=== PATIENT | male | born 1935 | race Caucasian/White ===

== ENCOUNTER 2017-01-30 10:56 | Outpatient (CLI) | payer MEDICARE, BC ==
--- NOTE | ~2017-01-30 | HEMODYNAMI ---
PATIENT:GIULIANA CHARLES MEDICAL RECORD: [id number] : 37 LOCATION:D.CAT ADMISSION DATE: 01/30/17 Generatedon:01/30/201714:08 Patient name: GIULIANA CHARLES Patient #: [id number] SSN: : 1935 Date of study: 01/30/2017 Page: Of Hemodynamic Procedure Report Patient Data Patient Demographics Procedure consent was obtained First Name: GIULIANA Gender: Male Last Name: MELVIN : 1935 Patient #: [id number] Age: 82 year(s) Race: Unknown Additional ID: [id number] Contact details [address]: [address] [place] [address] State: [place] City: [facility] Zip code: [address] Admission Admission Data Admission Date: 01/30/2017 Admission Time: 10:56 Procedure Procedure Types Cath Procedure Diagnostic Procedure Cardioversion Procedure Description Procedure Date Procedure Date: 01/30/2017 Procedure Start Time: 13:48 Procedure End Time: 14:07 Procedure Staff Name Function Say Cheng MD Performing Physician Elio Andujar RT Monitor Jose J Block RT [employer] Bus Driver Madyson Jacobs RN Nurse Procedure Data Cath Procedure Fluoroscopy Diagnostic fluoroscopy Total fluoroscopy Time: 0 time: 0 min min Diagnostic fluoroscopy Total fluoroscopy dose: 0 dose: 0 mGy mGy Contrast Material Contrast Material Type Amount (ml) Isovue 300 0 Estimated blood loss: 0 ml Procedure Complications No complications Procedure Medications Medication Administration Route Dosage Oxygen NC 6 l/min Hemodynamics Rest Heart Rate: 69 (bpm) Snapshots Pre Cath Intra NCS Post Cath Vital Signs Time Heart Resp SPO2 NIBP (mmHg) Rhythm Pain Sedation Rate (ipm) (%) Status Level (bpm) 13:45:42 67 22 18 146/90(119) NSR 0 (11) 10(A) , No pain 13:50:13 54 16 95 107/65(84) NSR 0 (11) 10(A) , No pain 13:54:19 54 23 97 107/58(82) NSR 0 (11) 10(A) , No pain 13:58:33 54 19 100 102/49(85) NSR 0 (11) 10(A) , No pain 14:02:44 48 14 100 102/53(73) NSR 0 (11) 10(A) , No pain 14:06:56 49 20 100 111/54(73) NSR 0 (11) 10(A) , No pain Medications Time Medication Route Dose Verified Delivered Reason Notes Effectiven ess by by 13:47:27 Oxygen NC 6 Buffie Buffie used for l/min Josephine RN Josephine uppers edge burnisher Procedure Log Time Note 13:28:32 Elio Andujar RT(R) sent for patient. Start room use. 13:28:33 Time tracking: Regular hours 13:28:36 Plan of Care:Hemodynamics will remain stable., Cardiac rhythm will remain stable., Comfort level will be maintained., Respiratory function will remain adequate., Patient/ family verbilizes understanding of procedure., Procedure tolerated without complication., Recovers from procedure without complications.. 13:37:42 Patient arrived from Pre/Post Procedure Room to [facility]. Patient remains on bed/stretcher for procedure. 13:37:51 Warm blankets applied, and aneta hugger turned on for patient comfort. 13:37:52 Correct patient and procedure confirmed by team. 13:37:53 Signed procedure consent form obtained from patient. 13:37:53 ECG and BP/O2 sat monitors applied to patient. 13:40:02 Dr Celestin present and monitoring patient for TIVA. 13:44:44 Vital chart was started 13:44:45 Baseline sample Acquired. 13:44:51 Rhythm: atrial fibrillation 13:44:52 Full Disclosure recording started 13:44:55 H&P Date Dictated: 01/30/2017 Within 30 days and on chart., H&P Addendum completed by physician on day of procedure. (MUST COMPLETE FOR ALL OUTPATIENTS). 13:44:57 Pre-procedure instructions explained to patient. 13:44:57 Pre-op teaching completed and patient verbalized understanding. 13:44:58 Family in waiting room. 13:44:59 Patient NPO since Midnight. 13:45:01 Is the patient allergic to Iodine/contrast media? No. 13:45:02 Is patient on blood thinner?Yes 13:45:07 ACC The patient was administered the following blood thiners within the last 24 hours: Eliquis 13:45:09 Patient diabetic? No. 13:45:21 Previous problem with sedation/anesthesia? No ? 13:45:22 Snore? Yes 13:45:23 Sleep apnea? No 13:45:26 Deviated septum? No 13:45:26 Opens mouth fully? Yes 13:45:27 Sticks out tongue? Yes 13:45:28 Airway obstruction? No ? 13:45:30 Dentures? No ? 13:45:34 Patient pain scale 0/10 ?. 13:45:39 IV patent on arrival in left forearm with 0.9% NaCl at [facility]. 13:45:41 Lab results completed and on chart. 13:45:43 Alarms reviewed by R. N. 13:45:44 Sharps counted by scrub and verified by R.N. 13:45:46 --------ALL STOP TIME OUT------ 13:45:47 Final Timeout: patient, procedure, and site verified with staff and physician. All members of the team are in agreement. 13:45:52 Physical assessment completed. ASA score P 2 - A patient with mild systemic disease as per Say Cheng MD. 13:45:55 Sedation plan: TIVA Propofol 13:46:18 Quick Combo opened to sterile field. 13:46:22 Quick combo pads placed on patients chest and back. 13:47:27 Oxygen 6 l/min NC was administered by Yohana Burton RN; used for procedure; 13:48:10 Baseline sample Acquired. 13:48:19 Procedure started. 13:48:24 Defibrillator synced and charged to 200 Joules. 13:48:26 Shock delivered. 13:49:59 Patient cardioverted to sinus bradycardia. 13:50:04 Procedure ended.(Physican Out) 13:51:39 Fluoroscopy time 00.00 minutes. 13:51:40 Fluoroscopy dose: 0 mGy 13:51:40 Flurop Dose total: 0 13:51:42 Contrast amount:Isovue 300 0ml. 13:51:49 Post-procedure physical assessment completed. ASA score P 2 - A patient with mild systemic disease as per Say Cheng MD. 13:51:54 Post procedure rhythm: sinus bradycardia 13:52:06 Estimated blood loss: 0 ml 13:52:07 Post procedure instruction explained to patient.Patient verbalizes understanding. 13:52:08 Patient needs reinforcement of post procedure teaching. 13:52:09 Procedure and supply charges have been captured, reviewed, submitted and are correct. 13:52:22 Procedure Complication : No complications 14:07:45 Vital chart was stopped 14:07:45 See physician's report for complete and final results. 14:07:48 Report given to Pre/Post Procedure Room. 14:07:52 Patient transfered to Pre/Post Procedure Room with Stretcher. 14:07:58 Procedure ended. 14:07:58 Full Disclosure recording stopped 14:08:05 End room use (Document Last) Device Usage Item Manufacture Quantity Catalog Hospital Part Current Minimal Lot# / Name Number Charge Number Stock [facility] Kervin ak# Code [facility] Gnammo 1 [id number] Combo Signature Audit [place] Stage Time Signature Unsigned Intra-Procedure 01/30/2017 Elio Andujar 2:08:21 PM RT(R) Signatures Monitor : Elio Andujar RT Signature : Date : Time : [address] [address]
[2017-01-30] MEDS ORDERED: CRESTOR10 MG PO (12:12)
[2017-01-30] MEDS ORDERED: BAYER CHEWABLE81 MG PO (12:13)
[2017-01-30] MEDS ORDERED: LISINOPRIL5 MG PO (12:13)
[2017-01-30] MEDS ORDERED: PREVACID15 MG PO (12:14)
[2017-01-30] MEDS ORDERED: BETAPACE 80 MG80 MG PO (12:14)
[2017-01-30] MEDS ORDERED: CO Q-10100 MG PO (12:15)
[2017-01-30] MEDS ORDERED: KRILL OIL 1,001 EAC1 PO (12:15)
[2017-01-30] MEDS ORDERED: ELIQUIS5 MG PO (12:15)
[2017-01-30 12:51] LABS: CALC OSMOLALITY 289 mosm/kg (275-300); CALCIUM 8.8 mg/dL (8.5-10.1); CARBON DIOXIDE 28.6 mmol/L (21.0-32.0); CHLORIDE - SERUM 107 mmol/L (98-107); GLUCOSE 112 mg/dL (74-106); POTASSIUM - SERUM 4.8 mmol/L (3.5-5.1); SODIUM 144 mmol/L (136-145); UREA NITROGEN 18 mg/dL (7-18); eGFR NON AFRICAN AMERICAN 76 mL/min (90-120)
[2017-01-30 12:52] LABS: INR 1.26 (0.85-1.17); PROTIME 15.7 SECONDS (11.6-15.0)
[2017-01-30 13:55] LABS: BASOPHILS 0.2 % (0.0-2.0); EOSINOPHILS 1.4 % (0-7); HEMATOCRIT 46.1 % (42.0-54.0); IMMATURE GRANULOCYTES 0.2 % (0-5); MCH 29.8 pg (26.0-34.0); MCHC 32.5 g/dL (31.0-37.0); MCV 91.5 fL (80.0-100.0); MEAN PLATELET VOLUME 11.7 fL (7.4-10.4); MONOCYTES 11.3 % (2-11); NEUTROPHILS 66.9 % (40-80); PLATELET COUNT 170 10x3/uL (130-400); RBC 5.04 10x6/uL (4.20-6.10); WBC 8.8 10x3/uL (4.8-10.8)
--- NOTE | 2017-01-30 14:30 | NUR ---
RESTING IN BED, FAMILY AT BEDSIDE. VITAL SIGNS STABLE. NO C/O NAUSEA OR CHEST PAIN. P 3 ARMAMENT/ORDNANCE IMA TECHNICIAN SHOWS SINUS BETHANY IN THE 40s. WILL CONTINUE TO MONITOR.
--- NOTE | 2017-01-30 14:45 | NUR ---
DRINK AND SNACK GIVEN. NO C/O AT THIS TIME. VITAL SIGNS STABLE. WILL CONTINUE TO MONITOR.
--- NOTE | 2017-01-30 15:00 | NUR ---
RESTING IN BED. VITAL SIGNS STABLE. NO C/O AT THIS TIME. WILL CONTINUE TO MONITOR.
--- NOTE | 2017-01-30 15:45 | NUR ---
LEFT HAND PIV D/C'D WITH CATHETER INTACT, BAND AID TO SITE. UP TO GET DRESSED.
--- NOTE | 2017-01-30 16:00 | NUR ---
TO RESTROOM TO VOID.
--- NOTE | 2017-01-30 16:15 | NUR ---
DISCHARGE INSTRUCTIONS GIVEN, VERBALIZED UNDERSTANDING.
--- NOTE | 2017-01-30 16:22 | NUR ---
TAKEN OUT VIA WHEELCHAIR BY CATH ROLL SLICING MACHINE TENDER. LEFT FACILITY WITH FAMILY MEMBER AND ALL PERSONAL BELONGINGS.
--- NOTE | 2017-02-08 14:54 | OP ---
PATIENT NAME: GIULIANA CHARLES MEDICAL RECORD: [id number] :37 LOCATION:D.CAT ADMISSION DATE: SURGEON: CHRISTINE CASTELLANOS M.D. DATE OF OPERATION: 01/30/2017 REFERRING PHYSICIAN: Dr. Antonio Preciado of [place], [place]. PROCEDURE PERFORMED: Cardioversion. INDICATION: An 82-year-old gentleman presents for persistent atrial fibrillation. DESCRIPTION OF THE PROCEDURE: The patient was brought to the cardiac catheterization technician. It was confirmed he is on atrial fibrillation. He has been anticoagulated and been on sotalol as well. EKG confirmed he is on atrial fibrillation. He received conscious sedation in the form of propofol. Once the patient was adequately sedated, he received 1 discharge of 200 joules. This resulted in adventist of sinus rhythm. He tolerated procedure well without any complication. IMPRESSION: Successful cardioversion with adventist of sinus rhythm. TRANSINT:[id number] Voice Confirmation ID: [id number] DOCUMENT ID: [id number] CHRISTINE CASTELLANOS M.D. at 1454 CC: [id number] DICTATION DATE: 01/30/17 1352 LVN LPN: 01/30/17 2343 DEP CLI 01/30/17 [id number] [place] [address]
== END 2017-01-30 16:22 | disposition home or self-care (01) ==
LOC: D.CATH 10:56
PROVIDERS: Internal Medicine Cardiovascular Disease
DX: I48.91 Unspecified atrial fibrillation (principal)

== ENCOUNTER → 2018-12-25 09:56 | Outpatient (CLI) | payer MEDICARE, BC ==
[~2018-12-25 09:56] MED LIST: BAYER CHEWABLE81 MG PO; BETAPACE 80 MG80 MG PO; CO Q-10100 MG PO; CRESTOR10 MG PO; ELIQUIS5 MG PO; KRILL OIL 1,001 EAC1 PO; LISINOPRIL5 MG PO; NEXIUM20 MG PO; PLAVIX75 MG PO; PREVACID15 MG PO; TOPROL XL25 MG PO
== END | disposition home or self-care (01) ==
LOC: D.HCCARDIO 09:56
DX: I48.91 Unspecified atrial fibrillation (principal)

== ENCOUNTER 2019-01-08 06:59 | Outpatient (CLI) | payer MEDICARE, BC ==
[~2019-01-08] VITALS: Ht 170.2 cm; Wt 72.7 kg
--- NOTE | ~2019-01-08 | HEMODYNAMI ---
PATIENT:GIULIANA CHARLES MEDICAL RECORD: [id number] : 37 LOCATION:[facility] ADMISSION DATE: 01/08/19 Generatedon:01/08/201910:35 Patient name: GIULIANA CHARLES Patient #: [id number] SSN: : 1935 Date of study: 01/08/2019 Page: Of Hemodynamic Procedure Report Patient Data Patient Demographics Procedure consent was obtained First Name: GIULIANA Gender: Male Last Name: MELVIN : 1935 Patient #: [id number] Age: 83 year(s) Race: Unknown Additional ID: [id number] Contact details Address: [address] [place] [address] State: [place] City: [facility] Zip code: [address] Past Medical History Allergies Allergen Reaction Date Comments Reported Other allergy 01/08/2019 CECLOR, MORPHINE Admission Admission Data Admission Date: 01/08/2019 Admission Time: 6:59 Lab Results Lab Result Date: 01/08/2019 Lab Result Time: 0:00 Biochemistry Name Units Result Min Max BUN mg/dl 21 --(----)-* 7 18 Creatinine mg/dl 1.3 --(---*)-- 0.6 1.3 CBC Name Units Result Min Max Hemoglobin g/dl 14.4 --(*---)-- 13.5 17.5 Procedure Procedure Types Cath Procedure Diagnostic Procedure C [facility] w/Coronaries Aortic Root Angiography Sedation Charges Moderate Sedation up to 45 minutes PCI Procedure AMI/SVG/ORAL AND MAXILLOFACIAL SURGEON PTCA or Stent SVG-BMS/JELLY Initial Procedure Description Procedure Date Procedure Date: 01/08/2019 Procedure Start Time: 9:36 Procedure End Time: 10:29 Procedure Staff Name Function Say Cheng MD Performing Physician Makayla Whitney RT Monitor Nara Dominguez RT Scrub Vandana Flores RT Scrub Mg Block RT Roller Inspector And Mender Jacinta Farrar RN Nurse Procedure Data Cath Procedure Fluoroscopy Diagnostic fluoroscopy Total fluoroscopy Time: time: 15.2 min 15.2 min Diagnostic fluoroscopy Total fluoroscopy dose: dose: 1185 mGy 1185 mGy Contrast Material Contrast Material Type Amount (ml) Isovue 300 207 Entry Location Entry Primary Successful Side Size Upsize Upsize Entry Closure Succes sful Closure Location (Fr) 1 (Fr) 2 (Fr) Remarks Device Remarks Femoral Right 5 Fr 6 Fr Exoseal artery Short Estimated blood loss: 10 ml Diagnostic catheters Device Type Used For End Catheter Placement MULTIPACK JL 4.0 5Fr Procedure catheter DIAGNOSTIC AR MOD 5Fr Procedure Catheter ([id number]) DIAGNOSTIC IM 5Fr Procedure catheter ([id number]) DIAGNOSTIC LCB 5Fr Procedure catheter ([id number]) MULTIPACK Pigtail 5 Fr Procedure catheter DIAGNOSTIC AR2 MOD 5 Fr Procedure catheter ([id number]) Procedure Complications No complications Procedure Medications Medication Administration Route Dosage 0.9% NaCl I.V. 100 ml/hr Oxygen etCO2 Nasal cannula 2 l/min Lidocaine 2% added to field 20 Heparin Flush Bag added to field 2 bags (1000units/500ml NS) Versed I.V. 2 mg Fentanyl I.V. 50 mcg Versed I.V. 1 mg Fentanyl I.V. 25 mcg Heparin Bolus I.V. 7500 units Nitroglycerin IC/IA I.C. 100 mcg Versed I.V. 1 mg Fentanyl I.V. 25 mcg Nitroglycerin IC/IA I.C. 100 mcg Plavix P.O. 600 mg Hemodynamics Rest HGB: 14.4 (g/dl) Heart Rate: 53 (bpm) Pressure Samples Time Site Value (mmHg) Purpose Heart Use Rate(bpm) 9:50 LV 128/1,15 Snapshot 68 9:51 AO 133/57(88) Pullback 67 9:51 LV 125/29,18 Pullback 67 Gradients Valve Time Site 1 Site 2 Mean SEP/DFP Peak To Heart Use (mmHg) (sec/min) Peak Rate (mmHg) (bpm) Aortic 9:51 LV AO 0 7 0 67 125/29,18 133/57(88) Calculations Valve P-P Mean Valve Index Valve Source Name Gradient Area Flow (cm2) Aortic 0 0 0 0 Snapshots Pre Cath Intra NCS Post Cath Vital Signs Time Heart Resp SPO2 etCO2 NIBP (mmHg) Rhythm Pain Sedation Rate (ipm) (%) (mmHg) Status Level (bpm) 9:12:30 57 19 99 39 159/77(114) SB 0 (11) 10(A) , No pain 9:17:00 51 16 100 36.8 153/64(87) SB 0 (11) 10(A) , No pain 9:21:24 52 12 98 38.7 133/62(98) SB 0 (11) 10(A) , No pain 9:25:40 54 11 97 41.3 132/65(93) SB 0 (11) 10(A) , No pain 9:29:52 55 11 97 40.5 130/65(97) SB 0 (11) 10(A) , No pain 9:34:12 57 11 97 40.5 126/60(101) SB 0 (11) 10(A) , No pain 9:38:31 57 11 97 41.3 135/61(101) SB 0 (11) 9(A) , No pain 9:42:46 70 11 97 34.5 142/76(105) NSR 0 (11) 9(A) , No pain 9:47:05 69 11 97 35.3 131/67(95) NSR 0 (11) 9(A) , No pain 9:51:25 58 11 97 39 135/59(102) SB 0 (11) 9(A) , No pain 9:55:45 64 12 98 24 134/65(104) NSR 0 (11) 9(A) , No pain 10:00:03 66 12 97 30 143/69(94) NSR 0 (11) 9(A) , No pain 10:04:25 58 13 97 30.7 135/65(96) SB 0 (11) 10(A) , No pain 10:08:45 68 12 98 30 127/56(98) NSR 0 (11) 9(A) , No pain 10:13:05 59 11 97 38 128/57(100) SB 0 (11) 9(A) , No pain 10:17:25 67 12 96 30 132/59(89) NSR 0 (11) 9(A) , No pain 10:21:41 57 12 98 33 136/65(107) SB 0 (11) 9(A) , No pain 10:25:55 64 14 97 38.3 137/72(101) NSR 0 (11) 10(A) , No pain 10:30:16 51 11 97 13.5 132/64(105) NSR 0 (11) 10(A) , No pain Medications Time Medication Route Dose Verified Delivered Reason Notes Effectiveness by by 9:14:00 0.9% NaCl I.V. 100 Say Jacinta used for ml/hr Prosper Farrar commodity trader 9:14:07 Oxygen etCO2 2 Say Jacinta used for Nasal l/min Prosper Farrar procedure cannula RN 9:14:12 Lidocaine 2% added 20ml Say Say for local to vial Prosper Cheng MD anesthetic field 9:14:17 Heparin Flush added 2 Say Say used for Bag to bags Prosper Cheng MD procedure (1000units/500ml field NS) 9:29:50 Versed I.V. 2 mg Say Jacinta for sedation Prosper Farrar RN 9:30:01 Fentanyl I.V. 50 Say Jacinta for sedation mcg Prosper Farrar RN 9:36:54 Versed I.V. 1 mg Say Jacinta for sedation Prosper Farrar RN 9:36:59 Fentanyl I.V. 25 Say Jacinta for sedation mcg Prosper Farrar RN 10:01:21 Heparin Bolus I.V. 7500 Say Jacinta for units Prosper Farrar anticoagulation RN 10:03:11 Nitroglycerin I.C. 100 Say Say for IC/IA mcg Prosper Cheng MD vasodilation 10:06:39 Versed I.V. 1 mg Say Say for sedation Prosper Cheng MD 10:06:43 Fentanyl I.V. 25 Say Say for sedation mcg Prosper Cheng MD 10:23:58 Nitroglycerin I.C. 100 Say Say for IC/IA mcg Prosper Cheng MD vasodilation 10:28:33 Plavix P.O. 600 Say Jacinta for mg Prosper Farrar antiplatelet RN therapy Procedure Log Time Note 8:42:07 Signed procedure consent form obtained from patient. 8:42:08 Diagnostic Cath status Elective 8:42:10 Time tracking: Regular hours (M-F 7:00 - 5:00) 8:42:15 Plan of Care:Hemodynamics will remain stable., Cardiac rhythm will remain stable., Comfort level will be maintained., Respiratory function will remain adequate., Patient/ family verbilizes understanding of procedure., Procedure tolerated without complication., Recovers from procedure without complications.. 8:49:48 H&P Date Dictated: 12/15/2018 Within 30 days and on chart., H&P Addendum completed by physician on day of procedure. (MUST COMPLETE FOR ALL OUTPATIENTS). 8:50:07 Patient allergic to Other allergyCECLOR, MORPHINE 9:00:19 Mg Block RT(R) sent for patient. Start room use. 9:06:34 Patient received from Pre/Post Procedure Room to CCL 2 Alert and oriented. Tansferred to table in Supine position. 9:06:35 Warm blankets applied, and aneta hugger turned on for patient comfort. 9:06:35 Correct patient and procedure confirmed by team. 9:06:36 ECG and BP/O2 sat monitors applied to patient. 9:11:16 Vital chart was started 9:13:47 Baseline sample Acquired. 9:13:53 Rhythm: sinus bradycardia 9:13:55 Full Disclosure recording started 9:13:55 Pre-procedure instructions explained to patient. 9:13:55 Pre-op teaching completed and patient verbalized understanding. 9:13:58 Family in patients room. 9:13:59 Patient NPO since Midnight. 9:14:00 0.9% NaCl 100 ml/hr I.V. was administered by Jacinta Farrar RN; used for procedure; 9:14:01 Is patient on blood thinner?Yes 9:14:07 Oxygen 2 l/min etCO2 Nasal cannula was administered by Jacinta Farrar RN; used for procedure; 9:14:12 Lidocaine 2% 20ml vial added to field was administered by Say Cheng MD; for local anesthetic; 9:14:12 ELIQUIS HELD 2.26 9:14:14 Patient diabetic? No. 9:14:17 Heparin Flush Bag (1000units/500ml NS) 2 bags added to field was administered by Say Cheng MD; used for procedure; 9:14:18 Previous problem with sedation/anesthesia? No ? 9:14:21 Snore? Yes 9:14:27 Sleep apnea? No 9:14:29 Deviated septum? No 9:14:32 Opens mouth fully? Yes 9:14:33 Sticks out tongue? Yes 9:14:35 Airway obstruction? No ? 9:14:38 Dentures? No ? 9:16:04 Pre procedure: right dorsailis pedis pulse 1+ Palpable, but thready & weak; easily obliterated 9:16:07 Patient pain scale 0/10 ?. 9:16:30 IV patent on arrival in left forearm with 0.9% NaCl at KVO. 9:17:45 Lab Result : Creatinine 1.3 mg/dl 9:17:45 Lab Result : BUN 21 mg/dl 9:17:45 Lab Result : Hemoglobin 14.4 g/dl 9:17:51 Lab results completed and on chart. 9:17:55 Right groin area was prepped with chlora-prep and draped in sterile fashion 9:17:56 Alarms reviewed by R. N. 9:17:56 Sharps counted by scrub and verified by R.N. 9:18:05 Use device set Femoral Dx 9:18:06 ACIST Syringe (82002) opened to sterile field. 9:18:06 Bag Decanter (2002S) opened to sterile field. 9:18:07 ACIST Hand Control (55611) opened to sterile field. 9:18:09 ACIST Manifold (51143) opened to sterile field. 9:18:10 Tegaderm 4 x 4 (1626W) opened to sterile field. 9:18:12 Medline Cath Pack ([id number]) opened to sterile field. 9:18:12 DIAGNOSTIC WIRE .035 260cm J wire (951409) opened to sterile field. 9:18:13 DIAGNOSTIC Multipack 5Fr catheter set (ZW1519) opened to sterile field. 9:18:14 SHEATH 5FR [place] (LAO660) opened to sterile field. 9:29:34 --------ALL STOP TIME OUT------ 9:29:35 Final Timeout: patient, procedure, and site verified with staff and physician. All members of the team are in agreement. 9:29:37 Right groin site verified by team. 9:29:40 Fire Safety Assessment: A--An alcohol-based skin anteseptic being used preoperatively., C--Open oxygen or nitrous oxide is being used., D--An ESU, laser, or fiber-optic light is being used. 9:29:43 Physical assessment completed. ASA score P 2 - A patient with mild systemic disease as per Say Cheng MD. 9:29:48 Sedation plan: IV Moderate Sedation Medication:Versed, Fentanyl 9:29:50 Versed 2 mg I.V. was administered by Jacinta Farrar RN; for sedation; 9:30:01 Fentanyl 50 mcg I.V. was administered by Jacinta Farrar RN; for sedation; 9:36:08 Procedure started. 9:36:15 Local anesthetic to right femoral artery with Lidocaine 2% by Say Cheng MD.INITIAL ACCESS ONLY 9:36:54 Versed 1 mg I.V. was administered by Jacinta Farrar RN; for sedation; 9:36:59 Fentanyl 25 mcg I.V. was administered by Jacinta Farrar RN; for sedation; 9:37:35 A 5 Fr sheath was inserted into the Right Femoral artery 9:38:04 A MULTIPACK JL 4.0 5Fr catheter was advanced over the wire and used for Procedure. 9:39:16 LCA angiography performed. 9:39:19 Catheter exchanged over wire. 9:40:31 A DIAGNOSTIC AR MOD 5Fr Catheter ([id number]) was advanced over the wire and used for Procedure. 9:41:07 RCA angiography performed. 9:42:07 SVG to RCA occluded. 9:43:03 Catheter exchanged over wire. 9:44:05 A DIAGNOSTIC IM 5Fr catheter (168940T) was advanced over the wire and used for Procedure. 9:45:44 LANGE to LAD angiography performed. 9:45:47 Catheter exchanged over wire. 9:46:34 A DIAGNOSTIC LCB 5Fr catheter (038250W) was advanced over the wire and used for Procedure. 9:48:01 Catheter exchanged over wire. 9:48:35 A MULTIPACK Pigtail 5 Fr catheter was advanced over the wire and used for Procedure. 9:49:53 LV gram done using CHO 9:50:02 Injector settings: Ml/sec: 10, Volume: 20, 9:50:21 LV hemodynamics recorded. 9:50:46 EF : 35 % 9:51:33 Aortic Root visualized 9:52:03 Catheter exchanged over wire. 9:53:21 A DIAGNOSTIC AR2 MOD 5 Fr catheter ([id number]) was advanced over the wire and used for Procedure. 9:54:45 SVG to Circ angiography performed. 9:54:53 Catheter exchanged over wire. 9:58:35 SHEATH 6FR [place] (HTH378) opened to sterile field. 9:58:35 BMW 300cm Straight [place] 2 wire ([id number]) opened to sterile field. 9:58:36 INFLATOR Merit BasixCompak (FS0806) opened to sterile field. 9:58:36 TUBING High Pressure Extension Tubing (Prosper) ([id number]) opened to sterile field. 9:59:07 Sheath upsized to a 6 Fr Short. 10:01:21 Heparin Bolus 7500 units I.V. was administered by Jacinta Farrar RN; for anticoagulation; 10:01:39 6 Fr AR 2 guide catheter was inserted over the wire 10:03:11 Nitroglycerin IC/IA 100 mcg I.C. was administered by Say Cheng MD; for vasodilation; 10:04:19 BMW 300 wire advanced. 10:04:50 Wire advanced across lesion. 10:06:39 Versed 1 mg I.V. was administered by Say Cheng MD; for sedation; 10:06:43 Fentanyl 25 mcg I.V. was administered by Say Cheng MD; for sedation; 10:13:12 The INTEGRITY OTW 3.5 X 30 stent ([id number]) was advanced then removed because of failure to cross lesion 10:15:48 Inflate balloon Inflation number: 1 A EMERGE OTW 2.0 x 15 balloon ([id number]) was prepped and advanced across the Aorta Left -> Mid CX, then inflated to 14 DEEPTHI for 0:10 (min:sec). 10:16:12 Inflation number: 2 The EMERGE OTW 2.0 x 15 balloon ([id number]) was reinflated across the Aorta Left -> Mid CX, to 14 DEEPTHI for 0:10 (min:sec). 10:16:19 Balloon removed over the wire. 10:19:49 Place stent Inflation Number: 3 A INTEGRITY OTW 3.5 X 30 stent ([id number]) was prepped and advanced across the Aorta Left -> Mid CX. The stent was deployed at 12 DEEPTHI for 0:10 (min:sec). 10:20:43 Stent catheter was removed intact over wire. 10:23:35 Place stent Inflation Number: 1 A INTEGRITY OTW 3.5 X 12 stent ([id number]) was prepped and advanced across the Aorta Left -> Prox CX. The stent was deployed at 13 DEEPTHI for 0:10 (min:sec). 10:23:58 Nitroglycerin IC/IA 100 mcg I.C. was administered by Say Cheng MD; for vasodilation; 10:24:20 Stent catheter was removed intact over wire. 10:25:28 Wire removed. 10:25:28 Guide catheter removed. 10:25:36 EXOSEAL 6Fr (EX600) opened to sterile field. 10::44 Sheath removed intact; hemostasis achieved with Exoseal to the Right Femoral artery. 10:27:00 Procedure ended.(Physican Out) 10::36 Fluoroscopy time 15.20 minutes. 10::45 Fluoroscopy dose: 1185 mGy 10::45 Flurop Dose total: 1185 10:27:49 Contrast amount:Isovue 300 207ml. 10:27:50 Sharps counted by scrub and verified by R.N. 10:27:53 Post-op/insertion site Right Femoral artery dressed using a 4 x 4 and Tegaderm. 10:27:56 Post-procedure physical assessment completed. ASA score P 2 - A patient with mild systemic disease as per Say Cheng MD. 10:27:59 Post procedure rhythm: sinus bradycardia 10:28:04 Estimated blood loss: 10 ml 10:28:05 Post procedure instruction explained to patient.Patient verbalizes understanding. 10:28:06 Patient needs reinforcement of post procedure teaching. 10:28:33 Plavix 600 mg P.O. was administered by Jacinta Farrar RN; for antiplatelet therapy; 10:28:35 Procedure type changed to Cath procedure, Diagnostic procedure, LHC, LHC w/Coronaries, Aortic Root Angiography, Sedation Charges, Moderate Sedation up to 45 minutes, PCI procedure, AMI/SVG/ORAL AND MAXILLOFACIAL SURGEON PTCA or Stent, SVG-BMS/JELLY Initial 10:29:46 Procedure and supply charges have been captured, reviewed, submitted and are correct. 10:29:48 Procedure Complication : No complications 10:29:51 Vital chart was stopped 10::52 See physician's report for complete and final results. 10:29:53 Report given to Pre/Post Procedure Room. 10:29:56 Patient transfered to Pre/Post Procedure Room with Bed. 10:29:58 Procedure ended. 10:29:58 Full Disclosure recording stopped 10:30:03 End room use (Document Last) Intervention Summary Intervention Notes Time ActionType Lesion and Equipment Action# Pressure Duration Attributes Used 10:13:12 Discard INTEGRITY Stent OTW 3.5 X 30 stent ([id number]) 10:15:48 Inflate Aorta Left EMERGE OTW 1 14 00:10 balloon -> Mid CX 2.0 x 15 balloon ([id number]) 10:16:12 Reinflate Aorta Left EMERGE OTW 2 14 00:10 balloon -> Mid CX 2.0 x 15 balloon ([id number]) 10:19:49 Place stent Aorta Left INTEGRITY 3 12 00:10 -> Mid CX OTW 3.5 X 30 stent ([id number]) 10:23:35 Place stent Aorta Left INTEGRITY 1 13 00:10 -> Prox CX OTW 3.5 X 12 stent ([id number]) Device Usage Item Name Manufacture Quantity Catalog Number Hospital Part Current [facility] Lot# / Charge Number Stock Stock Serial# Code ACIST Acist 1 73541 565443 072903 948751 20 Syringe Medical (21752) Systems Inc Bag Decanter Microtek 1 2001S 859735 40986 260496 5 (2001S) Medical Inc. ACIST Hand Acist 1 41040 133661 625641 894879 5 Control Medical (56468) Systems Inc ACIST Acist 1 00411 514654 702647 014132 5 Manifold Medical (50009) Systems Inc Tegaderm 4 x 3M 1 1626W 614138 499720 590509 5 4 (1626W) Medline Cath Medline 1 [id number] 448880 62912 261084 5 Pack ([id number]) DIAGNOSTIC [facility] [place] 1 671775 568211 977536 650862 30 WIRE .035 260cm J wire (031198) DIAGNOSTIC Cardinal 1 NT1376 794441 62518 575641 30 Multipack Health 5Fr catheter set (NU1869) SHEATH 5FR Terumo 1 DRD855 710312 666557 521870 5 [place] (VTA577) MULTIPACK JL Cardinal 1 717403 5 4.0 5Fr Health catheter DIAGNOSTIC Cardinal 1 [id number] 907872 750894 812363 15 AR MOD 5Fr Health Catheter (517719T) DIAGNOSTIC Cardinal 1 969118I 443186 644191 986263 5 IM 5Fr Health catheter (551624N) DIAGNOSTIC Cardinal 1 912080G 999978 595678 724564 5 LCB 5Fr Health catheter (571446B) MULTIPACK Cardinal 1 133996 5 Pigtail 5 Fr Health catheter DIAGNOSTIC Cardinal 1 530527V 588239 199662 283996 20 AR2 MOD 5 Fr Health catheter (611568O) SHEATH 6FR Terumo 1 EIF619 398139 594770 660167 40 [place] (MUE337) BMW 300cm Jansen 1 9948311 429137 303646 047428 5 Straight Vascular [place] 2 wire (2184689) INFLATOR Merit 1 AG4649 628153 119022 842054 15 Merit Medical BasixCompak (GA2191) TUBING High Merit 1 [id number] 406492 49212 514160 10 Pressure Medical Extension Tubing (Cheng) (QV2610C) INTEGRITY Medtronic 1 [id number] 339487 816857 430362 0 [id number] OTW 3.5 X 30 stent ([id number]) EMERGE OTW [place] 1 [id number] 444356 327573 822658 5 [id number] 2.0 x 15 Scientific balloon ([id number]) INTEGRITY Medtronic 1 [id number] 105101 936667 794784 1 [id number] OTW 3.5 X 12 stent ([id number]) EXOSEAL 6Fr Cardinal 1 EX600 535396 766989 267657 10 (EX600) Health Signature Audit [place] Stage Time Signature Unsigned Intra-Procedure 01/08/2019 Makayla Whitney 10:35:09 AM RT(R) Signatures Monitor : Makayla Whitney Signature : RT Date : Time : [facility] [address] [facility] [place] [address]
[~2019-01-08 06:59] MED LIST changes: -NEXIUM20 MG PO; -PLAVIX75 MG PO; -TOPROL XL25 MG PO
[2019-01-08] MEDS ORDERED: NEXIUM20 MG PO (07:22)
[2019-01-08] MEDS ORDERED: TOPROL XL25 MG PO (07:22)
[2019-01-08 07:38] VITALS: BP 143/66; Ht 170.2 cm; Wt 72.7 kg
[2019-01-08 07:49] LABS: BASOPHILS 0.1 % (0-2); EOSINOPHILS 1.3 % (0-7); HEMATOCRIT 43.4 % (42.0-54.0); HEMOGLOBIN 14.4 g/dL (13.5-17.5); IMMATURE GRANULOCYTES 0.3 % (0-5); LYMPHOCYTES 19.6 % (15-50); MCH 29.8 pg (26.0-34.0); MCHC 33.2 g/dL (31.0-37.0); MCV 89.7 fL (80.0-100.0); MEAN PLATELET VOLUME 10.9 fL (7.4-10.4); MONOCYTES 11.7 % (2-11); PLATELET COUNT 164 10x3/uL (130-400); RBC 4.84 10x6/uL (4.20-6.10); RDW 14.5 % (11.5-14.5)
[2019-01-08 07:59] LABS: ANION GAP 12.4 mmol/L (8-16); CREATININE - SERUM 1.3 mg/dL (0.6-1.3); POTASSIUM - SERUM 4.4 mmol/L (3.5-5.1)
[2019-01-08] MEDS ORDERED: PLAVIX75 MG PO (10:39)
--- NOTE | 2019-01-08 10:55 | NUR ---
2L NC, NO RESP DISTRESS. RIGHT GROIN 6F EXOSEAL CDI, NO BLEEDING OR HEMATOMA NOTED. NO C/O PAIN OR NAUSEA. VSS. FAMILY AT BEDSIDE, CALL LIGHT WITHIN REACH.
--- NOTE | 2019-01-08 11:25 | NUR ---
RIGHT GROIN 6F EXOSEAL CDI, NO BLEEDING OR HEMATOMA NOTED. NO C/O PAIN OR NAUSEA. VSS. WILL CONTINUE TO MONITOR.
--- NOTE | 2019-01-08 11:40 | NUR ---
RESTING QUIETLY WITH EYES CLOSED. RIGHT GROIN 6F EXOSEAL CDI, NO BLEEDING OR HEMATOMA NOTED. 2L NC WITH NO RESP DISTRESS. DENIES ANY NEEDS. VSS. CALL LIGHT WITHIN REACH.
--- NOTE | 2019-01-08 12:10 | NUR ---
CONTINUES TO REST QUIETLY WITH NO C/O. RIGHT GROIN 6F EXOSEAL CDI, NO BLEEDING OR HEMATOMA NOTED. VSS. WILL CONTINUE TO MONITOR.
--- NOTE | 2019-01-08 12:40 | NUR ---
RIGHT GROIN 6F EXOSEAL CDI, NO BLEEDING OR HEMATOMA NOTED. NO C/O AAT THIS TIME. VSS. CALL LIGHT WITHIN REACH.
--- NOTE | 2019-01-08 13:20 | NUR ---
HOB ELEVATED 30 DEGREES. RIGHT GROIN 6F EXOSEAL CDI, NO BLEEDING OR HEMATOMA NOTED. SIPPING ON DRINK AND EATING SANDWICH WITH NO C/O NAUSEA. VSS. WILL CONTINUE TO MONITOR CLOSELY.
--- NOTE | 2019-01-08 14:00 | NUR ---
LEFT PIV D/C'D WITH CATHETER INTACT, BAND AID TO SITE. UP TO BEDSIDE TO GET DRESSED. AMBULATED TO RESTROOM.
--- NOTE | 2019-01-08 14:10 | NUR ---
DISCHARGE INSTRUCTIONS ALONG WITH PLAVIX PRESCRIPTION AND STENT CARD GIVEN, VERBALIZED UNDERSTANDING.
--- NOTE | 2019-01-08 14:22 | NUR ---
TAKEN OUT VIA WHEELCHAIR BY CATH INSPECTOR AND CLIPPER. LEFT FACILITY WITH FAMILY AND ALL PERSONAL BELONGINGS.
== END 2019-01-08 14:22 | disposition home or self-care (01) ==
LOC: D.CATH 06:59
PROVIDERS: ATTEND Internal Medicine Cardiovascular Disease
DX: I25.719 Atherosclerosis of autologous vein coronary artery bypass graft(s) with unspecified angina pectoris (principal); I25.119 Atherosclerotic heart disease of native coronary artery with unspecified angina pectoris; Z01.812 Encounter for preprocedural laboratory examination

== ENCOUNTER 2020-05-24 11:49 | Outpatient (CLI) | payer MEDICARE, BC ==
[~2020-05-24] VITALS: Ht 170.2 cm; Wt 77.3 kg
--- NOTE | ~2020-05-24 | HEMODYNAMI ---
PATIENT:GIULIANA CHARLES MEDICAL RECORD: [id number] : 37 LOCATION:[facility] ADMISSION DATE: 05/24/20 Generatedon:05/24/202014:24 Patient name: GIULIANA CHARLES Patient #: [id number] SSN: [id number] : 1935 Date of study: 05/24/2020 Page: Of Hemodynamic Procedure Report Patient Data Patient Demographics Procedure consent was obtained First Name: GIULIANA Gender: Male Last Name: MELVIN : 1935 Patient #: [id number] Age: 85 year(s) Race: Unknown SSN: [id number] Additional ID: [id number] Contact details Address: [address] [place] [address] State: [place] City: [facility] Zip code: [address] Past Medical History Allergies Allergen Reaction Date Comments Reported Other allergy 01/08/2019 CECLOR, MORPHINE Other allergy 05/24/2020 Morphine Admission Admission Data Admission Date: 05/24/2020 Admission Time: 11:49 Arrival Date: 05/24/2020 Arrival Time: 0:00 Insurance Payor: Medicare [facility] #: [id number] Height (in.): 68 Height (cm.): 172.72 Lab Results Lab Result Date: 05/24/2020 Lab Result Time: 0:00 Biochemistry Name Units Result Min Max BUN mg/dl 20 --(----)*- 7 18 Creatinine mg/dl 1.1 --(--*-)-- 0.6 1.3 CBC Name Units Result Min Max Hemoglobin g/dl 14.7 --(-*--)-- 13.5 17.5 Procedure Procedure Types Cath Procedure Diagnostic Procedure BREEZY Procedure Description Procedure Date Procedure Date: 05/24/2020 Procedure Start Time: 14:11 Procedure End Time: 14:23 Procedure Staff Name Function Robb Huertas MD Performing Physician Maria Fernanda Noe RT Monitor Jacinta Farrar RN Nurse Chaitanya Patel Jr, CRNA Additional personnel Frida Iwrin Cuff Turner Machine Operator Procedure Data Procedure Complications No complications Procedure Medications Medication Administration Route Dosage 0.9% NaCl I.V. 100 ml/hr Oxygen etCO2 Nasal cannula 2 l/min Hurricaine [place] P.O. 2 Sprays Refer to Anesthesia Notes for Sedation Medications Hemodynamics Rest HGB: 14.7 (g/dl) Heart Rate: 57 (bpm) Snapshots Pre Cath Intra NCS Post Cath Vital Signs Time Heart Resp SPO2 etCO2 NIBP (mmHg) Rhythm Pain Sedation Rate (ipm) (%) (mmHg) Status Level (bpm) 13:34:30 56 18 95 37.8 Measuring SB 0 (11) 10(A) , No pain 13:34:36 58 17 95 36 168/78(96) SB 0 (11) 10(A) , No pain 13:39:05 56 17 96 34 165/73(99) SB 0 (11) 10(A) , No pain 13:43:31 54 15 99 37.4 166/76(95) SB 0 (11) 10(A) , No pain 13:47:59 54 14 99 38.1 167/68(92) SB 0 (11) 10(A) , No pain 13:52:25 55 10 99 37.4 161/75(93) SB 0 (11) 10(A) , No pain 13:56:50 55 16 99 36.6 163/72(95) SB 0 (11) 10(A) , No pain 14:01:12 57 25 99 40.4 175/83(96) SB 0 (11) 10(A) , No pain 14:06:11 51 16 100 37.4 Measuring SB 0 (11) 10(A) , No pain 14:06:27 60 18 99 38.1 172/80(99) NSR 0 (11) 10(A) , No pain 14:08:32 57 16 99 36.7 175/77(97) SB 0 (11) 10(A) , No pain 14:12:59 58 16 99 38.1 185/81(98) SB 0 (11) 5(A) , No pain 14:17:19 70 15 94 0 149/82(98) SB 0 (11) 5(A) , No pain 14:21:43 65 15 95 43.4 133/67(110) SB 0 (11) 10(A) , No pain Medications Time Medication Route Dose Verified Delivered Reason Notes Effecti veness by by 13:38:04 0.9% NaCl I.V. 100 Robb Workman used for ml/hr St Antonio Farrar procedure MD BONILLA 13:38:11 Oxygen etCO2 2 Robb Workman used for Nasal l/min St Antonio Farrar procedure cannula MD [place] 13:38:22 Hurricaine P.O. 2 Robb Workman for local [place] Sprays Pendleton Charan anesthetic MD [place] 13:38:26 Refer to Robb Zamudio for Anesthesia [facility] sedation Notes for MD DICKERSON Sedation Medications Procedure Log Time Note 12:39:44 Arrival Date: 05/24/2020 12:00:00 AM 12:40:11 Insurance Payor : Medicare 12:40:20 Patient Height : 68 inches 12:43:10 Diagnostic Cath Status : Elective 12:43:43 Procedure Status Elective Heart Cath (OP). 12:43:46 Maria Fernanda Noe RT(R) sent for patient. Start room use. 12:43:47 Time tracking: Regular hours (M-F 7:00 - 5:00) 12:43:52 Plan of Care:Hemodynamics will remain stable., Cardiac rhythm will remain stable., Comfort level will be maintained., Respiratory function will remain adequate., Patient/ family verbilizes understanding of procedure., Procedure tolerated without complication., Recovers from procedure without complications.. 12:43:57 Patient received from Pre/Post Procedure Room to CCL 2 Alert and oriented. Tansferred to table in Supine position. 13:32:36 Signed procedure consent form obtained from patient. 13:32:38 Warm blankets applied, and aneta hugger turned on for patient comfort. 13:32:39 Correct patient and procedure confirmed by team. 13:32:40 ECG and BP/O2 sat monitors applied to patient. 13:32:41 Baseline sample Acquired. 13:32:41 Vital chart was started 13:32:43 Full Disclosure recording started 13:33:05 H&P Date Dictated: 05/09/2020 Within 30 days and on chart., H&P Addendum completed by physician on day of procedure. (MUST COMPLETE FOR ALL OUTPATIENTS). 13:33:06 Pre-procedure instructions explained to patient. 13:33:11 Pre-op teaching completed and patient verbalized understanding. 13:33:13 Family in patients room. 13:33:31 Patient NPO since Midnight. 13:33:40 Patient allergic to Other allergyMorphine 13:33:44 Is the patient allergic to Iodine/contrast media? No. 13:33:46 Was the patient premedicated? Yes 13:33:47 Is patient on blood thinner?Yes 13:34:09 Eloquis on 05/21/2020 13:34:12 Patient diabetic? No. 13:34:16 Snore? Yes 13:34:17 Sleep apnea? No 13:34:28 Dentures? No ? 13:34:53 IV patent on arrival in left forearm with 0.9% NaCl at [facility]. 13:35:27 Lab Result : BUN 20 mg/dl 13:35:27 Lab Result : Creatinine 1.1 mg/dl 13:35:27 Lab Result : Hemoglobin 14.7 g/dl 13:35:32 Lab results completed and on chart. 13:35:45 Alarms reviewed by R. N. 13:35:46 Sharps counted by scrub and verified by R.N. 13:35:48 Physician arrived 13:36:29 Fire Safety Assessment: A--An alcohol-based skin anteseptic being used preoperatively., C--Open oxygen or nitrous oxide is being used., D--An ESU, laser, or fiber-optic light is being used. 13:36:45 Physical assessment completed. ASA score P 2 - A patient with mild systemic disease as per Robb Huertas MD. 13:36:52 Sedation plan: TIVA Medication:Propofol 13:36:55 Chaitanya Patel Jr SALESPERSON [employer] present and monitoring patient for TIVA. 13:38:04 0.9% NaCl 100 ml/hr I.V. was administered by Jacinta Farrar RN; used for procedure; Verbal order read back and verified. 13:38:11 Oxygen 2 l/min etCO2 Nasal cannula was administered by Jacinta Farrar RN; used for procedure; Verbal order read back and verified. 13:38:22 Hurricaine [place] 2 Sprays P.O. was administered by Jacinta Farrar RN; for local anesthetic; Verbal order read back and verified. 13:38:26 Refer to Anesthesia Notes for Sedation Medications was administered by Robb Huertas MD; for sedation; Verbal order read back and verified. 13:55:34 Physician arrived 13:55:36 --------ALL STOP TIME OUT------ 13:55:37 Final Timeout: patient, procedure, and site verified with staff and physician. All members of the team are in agreement. 13:56:25 Frida Irwin Supervising Producer present for BREEZY. 14:01:08 Baseline sample Acquired. 14:11:14 Procedure started. 14:11:26 BREEZY started. 14:19:03 BREEZY completed. 14:19:15 Procedure ended.(Physican Out) 14:19:57 Procedure and supply charges have been captured, reviewed, submitted and are correct. 14:20:13 Procedure Complication : No complications 14:20:48 BREEZY Findings: no vegetation noted 14:20:51 BREEZY Findings: other (see operative note) 14:21:03 Report given to Pre/Post Procedure Room. 14:23:12 Patient transfered to Pre/Post Procedure Room with Stretcher. 14:23:15 Procedure ended. 14:23:15 Full Disclosure recording stopped 14:23:20 End room use (Document Last) 14:23:42 End room use (Document Last) 14:24:03 End room use (Document Last) 14:24:41 Vital chart was stopped Signature Audit [place] Stage Time Signature Unsigned Intra-Procedure 05/24/2020 Maria Fernanda Noe 2:23:43 PM RT(R) Intra-Procedure 05/24/2020 Jacinta Farrar 2:24:03 PM RN Intra-Procedure 05/24/2020 Robb Chapman 2:24:39 PM Antonio DICKERSON Signatures Performing Physician : Signature : Robb Huertas MD Date : Time : Monitor : Maria Fernanda Noe Signature : RT Date : Time : Nurse : Jacinta Farrar RN Signature : Date : Time : [address] [place] [address]
[~2020-05-24 11:49] MED LIST changes: +NEXIUM20 MG PO; +PLAVIX75 MG PO; +TOPROL XL25 MG PO
[2020-05-24] MEDS ORDERED: MOBIC7.5 MG PO (12:23)
[2020-05-24 12:43] LABS: HEMATOCRIT 44.5 % (42.0-54.0); HEMOGLOBIN 14.7 g/dL (13.5-17.5); LYMPHOCYTES 19.6 % (15-50); MCH 29.8 pg (26.0-34.0); MCV 90.1 fL (80.0-100.0); MEAN PLATELET VOLUME 10.4 fL (7.4-10.4); NEUTROPHILS 69.7 % (40-80); PLATELET COUNT 166 10x3/uL (130-400); RBC 4.94 10x6/uL (4.20-6.10); RDW 14.8 % (11.5-14.5); WBC 6.9 10x3/uL (4.8-10.8)
[2020-05-24 12:44] VITALS: BP 161/66; Ht 170.2 cm; Wt 77.3 kg
[2020-05-24 12:52] LABS: ANION GAP 8.9 mmol/L (8-16); CALCIUM 9.1 mg/dL (8.5-10.1); CARBON DIOXIDE 31.3 mmol/L (21.0-32.0); CREATININE - SERUM 1.1 mg/dL (0.6-1.3); POTASSIUM - SERUM 4.2 mmol/L (3.5-5.1)
--- NOTE | 2020-05-24 14:30 | NUR ---
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 PT AWAKE BUT DROWSY, DENIES PAIN OR DISCOMFORT. IV PATENT INFUSING VIA L ARM PER ORDERS. PT HAVING NO PROBLEMS SWALLOWING OR PAIN IN THROAT. PT PLACED ON CARDIAC MONITORS AND O2 VIA NC AT 2L. HR SB RATE 52, BP 123/57, RR 19, SAT 97. DR HUANG AT BS, NO NEW ORDERS RECEIVED. CALL LIGHT IN REACH, AT BS
[2020-05-24] MEDS ORDERED: ALDACTONE25 MG PO (14:41)
--- NOTE | 2020-05-24 15:00 | NUR ---
PT DOING WELL, NO C/O THROAT PAIN OR DIFFICULITY SWALLOWING. VSS. AT , CALL LIGHT IN REACH.
--- NOTE | 2020-05-24 15:35 | NUR ---
1520 DISCHARGE INSTRUCTIONS REVIEWED W PT AND , BOTH VERBALIZED UNDERSTANDING. IV REMOVED W CATH INTACT, MONITORS AND O2 REMOVED. PT UP TO DRESS FOR DISCHARGE. SWALLOWING PO FLUIDS W/O DIFFICULITY. PT DISCHARGE VIA WC AFTER STOPPING AT BR TO SON WAITING IN PRIVATE VEHICLE. PT HAD ALL BELONGINGS AND DISCHARGE INSTRUCTIONS
--- NOTE | 2020-05-25 08:08 | TEE ---
PATIENT:GIULIANA CHARLES MEDICAL RECORD: [id number] LOCATION:D[facility] AGE OF PATIENT: 85 ADMISSION DATE: 05/24/20 SEX: M REFERRING PHYSICIAN: INTERPRETING PHYSICIAN: MAREN HUANG MD TRANSESOPHAGEAL ECHOCARDIOGRAM Date: 05/24/20 BREEZY CHARGE Y INDICATIONS: MR, TR, AI PREMEDICATIONS: PATIENT'S RESPONSE PROCEDURE DOPPLER MEASUREMENTS: LVIT LA PA RA LVOT RVOT Asc. Ao AV Gradient Peak AV Mean AV Area MV Gradient Peak MV Mean MV Area INTERPRETATION: Doppler: 2-D: COLOR FLOW DOPPLER NORMAL SALINE STUDY: MISCELLANOUS: DIAGNOSIS: PLAN: Manager Delivery:3 Dr. Veloz Bench Machine Operator: Jayne YE COMMENTS: DATE OF SERVICE: 05/24/2020 This is a Transesophageal Note. DESCRIPTION OF PROCEDURE: After general sedation via TIVA via anesthesia, transesophageal Omniplane probe was placed in to the distal esophagus and proximal stomach without difficulty. FINDINGS: As follows: Mild LVH. LV internal dimensions are normal. The LV TRANSESOPHAGEAL ECHOCARDIOGRAM REPORT [id number] GIULIANA CHARLES appears to be mildly globally hypo with EF prior lower limits of normal at 50%. Aortic valve is sclerotic; however, good valve excursion, mild plus AI with color flow imaging. Left atrium appears upper limits of normal to mildly dilated. Left atrial appendage is well visualized with good contractility. The posterior leaflet of mitral valve appears to be calcified with restriction of leaflet motion. There is a severe degree of MR by color flow imaging with extending all the way back to the pulmonary vein. Right-sided chambers are grossly normal. Mild TR. At the end of procedure, the transesophageal Omniplane probe was turned posteriorly and this shows minimal atherosclerotic debris in the descending aorta. IMPRESSION: Severe mitral regurgitation as described above. EF is lower limits of normal. Aldactone was added to his medical regime. During the procedure, the patient was monitored continuously. Pulse oximetry and telemetry and noninvasive blood pressure monitoring. TRANSINT:[id number] Voice Confirmation ID: [id number] DOCUMENT ID: [id number] at 0808 CC: [id number] DICTATION DATE: 05/24/20 1426 CUFFING MACHINE OPERATOR: 05/25/20 0250 DEP CLI 05/24/20 [id number] [place] [id number]
== END 2020-05-24 15:30 | disposition home or self-care (01) ==
LOC: D.CATH 11:49
PROVIDERS: ATTEND Internal Medicine Interventional Cardiology
DX: I25.10 Atherosclerotic heart disease of native coronary artery without angina pectoris (principal); I10 Essential (primary) hypertension; I48.91 Unspecified atrial fibrillation; I34.0 Nonrheumatic mitral (valve) insufficiency; I25.2 Old myocardial infarction; E78.5 Hyperlipidemia, unspecified; K21.9 Gastro-esophageal reflux disease without esophagitis